=== PATIENT | female | born 1945 | race Two or more races ===

== ENCOUNTER 2016-08-27 14:35 | Inpatient (IN) | payer MEDICARE, OTHER ==
[~2016-08-27] VITALS: Ht 165.1 cm; Wt 79.5 kg
[~2016-08-27 14:35] MED LIST: ALL100T PO; CLON0.1D TD; DICY10CA12 PO; HYDR-2551 PO; LIS20T PO; NIFE60TA53 PO; SEVE800T8 PO; SIMV5TAB50 PO; TRAM50TA2 PO
[2016-08-27] MEDS ORDERED: LABETALOL HCL 5 MG/ML 4ML SYRINGE IV ONE (15:00)
[2016-08-27 15:42] LABS: Basophils # (auto) 0 uL; Basophils % (auto) 0.6 % (0.0-2.0); Eosinophils # (auto) 0 uL; Eosinophils % (auto) 0.9 % (0.0-7.0); Hematocrit 35.8 % (36.0-46.0); Hemoglobin 11.8 g/dL (12.2-16.2); Lymphocytes # (auto) 1.6 uL; Lymphocytes % (auto) 30.8 % (10.0-50.0); Mean Corpuscular Hgb Conc. 33.1 g/dL (32.0-36.0); Mean Corpuscular Volume 96.9 fL (80.0-100.0); Mean Platelet Volume 8.9 fL (7.4-10.4); Monocytes # (auto) 0.6 uL; Monocytes % (auto) 12.1 % (0.0-12.0); Neutrophils # (auto) 2.9 uL; Neutrophils % (auto) 55.6 % (37.0-80.0); Platelet Count (auto) 179 10^3/uL (140-450); Red Cell Distribution Width 17.7 % (11.6-16.0); White Blood Cell 5.3 10^3/uL (4.4-10.8)
[2016-08-27 15:54] LABS: INR 0.91 (0.9-1.15); Partial Thromboplastin Time 24.8 sec (22.64-33.71); Prothrombin Time 9.9 sec (9.37-12.3)
[2016-08-27 16:00] LABS: Albumin 3.4 g/dL (3.4-5.0); Alkaline Phosphatase 170 U/L (45-117); Anion Gap 12 (5-15); Aspartate Aminotransferase 12 U/L (15-37); BUN/Creatinine Ratio 8.7; Bilirubin, Total 0.3 mg/dL (0.2-1.0); Blood Urea Nitrogen 55 mg/dL (7-18); Calcium 8.8 mg/dL (8.5-10.1); Carbon Dioxide 29 mmol/L (21-32); Chloride 97 mmol/L (98-107); GFR African American 8 mL/min; GFR Non-African American 7 mL/min; Glucose 102 mg/dL (74-106); Potassium 4.5 mmol/L (3.5-5.1); Sodium 138 mmol/L (136-145)
[2016-08-27 16:11] LABS: B-Type Natriuretic Peptide 232.63 pg/mL (0-100); Temperature: 23.8 C (20.0-25.0)
[2016-08-27] MEDS ORDERED: LACTULOSE 20Gm/30ML SOLN PO PRN (18:00)
[2016-08-27] MEDS ORDERED: HYDROcodone-ACET 5/325MG TAB PO PRN (18:00)
[2016-08-27] MEDS ORDERED: LORazepam 0.5 MG TAB PO PRN (18:00)
[2016-08-27] MEDS ORDERED: ACETAMINOPHEN 500 MG TAB PO PRN (18:00)
[2016-08-27] MEDS ORDERED: PROMETHAZINE HCL 25 MG/ML 1ML IV PRN (18:00)
[2016-08-27] MEDS ORDERED: NITROGLYCERIN 0.4 MG SL TAB SL PRN (18:00)
[2016-08-27] MEDS ORDERED: cloNIDine 0.1 mg/24hr 7 DAY PATCH TD SCH (18:00)
[2016-08-27] MEDS ORDERED: TEMAZEPAM 15 MG CAP PO PRN (18:00)
[2016-08-27] MEDS ORDERED: MORPHINE SULF INJ 2 MG/ML SYRINGE 1ML IV PRN ×2 (18:00)
[2016-08-27] MEDS ORDERED: DEXTROSE (50%) 50ML SYRG IV PRN (18:00)
[2016-08-27] MEDS ORDERED: NIFEdipine ER 30 MG TAB PO ONE (18:30)
[2016-08-27] MEDS ORDERED: LISINOPRIL 20 MG TAB PO ONE (18:30)
[2016-08-27] MEDS ORDERED: ASPirin 81 mg TAB PO ONE (18:30)
[2016-08-27] MEDS: FAMOTIDINE (10MG/ML) 2ML VL IV SCH (18:37)
[2016-08-27 18:51] LABS: Temperature: 23.8 C (20.0-25.0)
[2016-08-27 22:00] VITALS: BP 134/47
[2016-08-27] MEDS: InsuLIN REG 1unit/0.01ml Soln (100units/ml) SC SCH (22:00)
[2016-08-27] MEDS ORDERED: ATORVASTATIN 20 MG TAB PO SCH (22:00)
[2016-08-27] MEDS: METOPROLOL TARTRATE 25 MG TAB PO SCH (22:24)
[2016-08-27] MEDS: SODIUM CHLOR 0.9% PF (SALINE LOCK) 10ML VIAL IV SCH (22:24)
[2016-08-27] MEDS: ALLOPURINOL 100 MG TAB PO SCH (22:25)
[2016-08-27] MEDS: ACCU-CHEK COMFORT CURVE STRIP VI SCH (22:25)
[2016-08-27 22:55] VITALS: BP 196/75
[2016-08-28 04:58] VITALS: BP 154/56
[2016-08-28 06:23] LABS: Basophils # (auto) 0 uL; Basophils % (auto) 0.5 % (0.0-2.0); Eosinophils # (auto) 0.1 uL; Eosinophils % (auto) 0.9 % (0.0-7.0); Hematocrit 36.7 % (36.0-46.0); Hemoglobin 12.1 g/dL (12.2-16.2); Lymphocytes # (auto) 1.4 uL; Mean Corpuscular Hemoglobin 31.7 pg (28.0-32.0); Mean Corpuscular Hgb Conc. 32.8 g/dL (32.0-36.0); Mean Corpuscular Volume 96.5 fL (80.0-100.0); Mean Platelet Volume 8.9 fL (7.4-10.4); Monocytes # (auto) 0.6 uL; Monocytes % (auto) 9.5 % (0.0-12.0); Neutrophils # (auto) 4.1 uL; Neutrophils % (auto) 67.1 % (37.0-80.0); Platelet Count (auto) 179 10^3/uL (140-450); Red Cell Distribution Width 17.6 % (11.6-16.0); White Blood Cell 6.2 10^3/uL (4.4-10.8)
[2016-08-28] MEDS ORDERED: PNEUMOCOCCAL VACC POLYS 25 MCG/0.5 ML VIAL IM ONE (06:45)
[2016-08-28] MEDS: InsuLIN REG 1unit/0.01ml Soln (100units/ml) SC SCH ×2 (06:47→11:30)
[2016-08-28] MEDS: ACCU-CHEK COMFORT CURVE STRIP VI SCH ×2 (06:47→11:35)
[2016-08-28 06:58] LABS: Albumin 3.5 g/dL (3.4-5.0); BUN/Creatinine Ratio 9.3; Bilirubin, Total 0.4 mg/dL (0.2-1.0); Calcium 8.9 mg/dL (8.5-10.1); Potassium 4.7 mmol/L (3.5-5.1); Total Protein 7.2 g/dL (6.4-8.2)
[2016-08-28] MEDS: SODIUM CHLOR 0.9% PF (SALINE LOCK) 10ML VIAL IV SCH ×2 (07:20→13:26)
[2016-08-28] MEDS: SEVELAMER 800 MG TAB PO SCH ×2 (08:12→11:39)
[2016-08-28] MEDS: ALLOPURINOL 100 MG TAB PO SCH (08:13)
[2016-08-28] MEDS: FAMOTIDINE (10MG/ML) 2ML VL IV SCH (08:14)
[2016-08-28] MEDS: METOPROLOL TARTRATE 25 MG TAB PO SCH (08:14)
[2016-08-28 08:59] VITALS: BP 146/88
[2016-08-28] MEDS ORDERED: ASPirin 81 mg TAB PO SCH (10:00)
[2016-08-28] MEDS ORDERED: LISINOPRIL 20 MG TAB PO SCH (10:00)
[2016-08-28] MEDS ORDERED: NITROGLYCERIN 0.2MG/HR TOPICAL PATCH TD SCH (10:00)
[2016-08-28] MEDS ORDERED: NIFEdipine ER 30 MG TAB PO SCH (10:00)
[2016-08-28 13:00] VITALS: BP 149/68
[2016-08-28 13:11] LABS: Urine Bilirubin Negative (Negative); Urine Blood Negative /uL (Negative); Urine Color Yellow (Yellow); Urine Ketone Negative (Negative); Urine Nitrite Negative (Negative); Urine RBC <1 /hpf (0 - 4); Urine Squamous Epithelial Cell FEW /hpf (<5); Urine Urobilinogen Normal (Negative)
[2016-08-28 13:17] VITALS: BP 146/88
[2016-08-28 13:22] LABS: Urine Glucose 1+ mg/dL (Normal)
[2016-08-29] MEDS ORDERED: ALLOPURINOL 100 MG TAB PO SCH (10:00)
== END 2016-08-28 15:00 | disposition home or self-care (01) | DRG 304 ==
LOC: EDBD 14:35 → ER 14:41 → TELE-CENTR 14:42 → TELE 20:29 → TELE-WESTW 22:55
PROVIDERS: ADMIT Internal Medicine; ATTEND Internal Medicine Geriatric Medicine
DX: I16.0 Hypertensive urgency (principal); N18.6 End stage renal disease; I13.2 Hypertensive heart and chronic kidney disease with heart failure and with stage 5 chronic kidney disease, or end stage renal disease; R07.89 Other chest pain; D63.8 Anemia in other chronic diseases classified elsewhere; M10.9 Gout, unspecified; E78.5 Hyperlipidemia, unspecified; E11.22 Type 2 diabetes mellitus with diabetic chronic kidney disease; D63.1 Anemia in chronic kidney disease; I50.9 Heart failure, unspecified; K57.90 Diverticulosis of intestine, part unspecified, without perforation or abscess without bleeding; Z80.0 Family history of malignant neoplasm of digestive organs; Z99.2 Dependence on renal dialysis; Z82.49 Family history of ischemic heart disease and other diseases of the circulatory system; Z85.038 Personal history of other malignant neoplasm of large intestine; Z91.14 Patient's other noncompliance with medication regimen; Z88.0 Allergy status to penicillin
CPT/HCPCS: 36415; 70450; 71010; 74176; 80053; 80061; 80307; 81001; 82550; 82607; 82746; 82962; 83036; 83880; 84443; 84484; 85025; 85379; 85610; 85652; 85730; 86141; 87081; 93005; 93306; 96374; J3490

== ENCOUNTER 2016-11-18 22:01 | Emergency (ER) | payer MEDICARE, OTHER ==
[~2016-11-18] VITALS: Ht 167.6 cm; Wt 72.6 kg
[2016-11-18 22:41] LABS: Basophils # (auto) 0 uL; Basophils % (auto) 0.2 % (0.0-2.0); CONDITION Y; Eosinophils # (auto) 0.1 uL; Hematocrit 27.9 % (36.0-46.0); Hemoglobin 9.2 g/dL (12.2-16.2); Lymphocytes # (auto) 1.4 uL; Lymphocytes % (auto) 21.5 % (10.0-50.0); Mean Corpuscular Hemoglobin 33.3 pg (28.0-32.0); Mean Corpuscular Volume 100.7 fL (80.0-100.0); Mean Platelet Volume 7.6 fL (7.4-10.4); Monocytes # (auto) 0.7 uL; Monocytes % (auto) 10.7 % (0.0-12.0); Neutrophils # (auto) 4.2 uL; Neutrophils % (auto) 66.6 % (37.0-80.0); Platelet Count (auto) 282 10^3/uL (140-450); White Blood Cell 6.3 10^3/uL (4.4-10.8)
[2016-11-18 22:52] LABS: Albumin 3.5 g/dL (3.4-5.0); BUN/Creatinine Ratio 6.7; Calcium 8.6 mg/dL (8.5-10.1); Potassium 4.3 mmol/L (3.5-5.1)
[2016-11-18 22:55] LABS: Bilirubin, Total 0.4 mg/dL (0.2-1.0); Total Protein 7.1 g/dL (6.4-8.2)
[2016-11-19] MEDS ORDERED: cloNIDine HCL 0.1 MG TAB PO ONE (08:30)
[2016-11-19 09:05] VITALS: BP 176/96
[2016-11-27] MEDS ORDERED: LOSA100T27 PO (15:14)
[2016-11-27] MEDS ORDERED: CLOP75TA41 PO (15:14)
[2016-11-27] MEDS ORDERED: CARI-316 PO (15:14)
[2016-11-27] MEDS ORDERED: PANT40T PO (15:14)
[2016-11-27] MEDS ORDERED: NIFE90TA30 PO (15:14)
[2016-11-27] MEDS ORDERED: AMIO200T33 PO (15:14)
[2016-11-27] MEDS ORDERED: METO-158 PO (15:14)
[2016-11-27] MEDS ORDERED: FURO40TA4 PO (15:14)
== END 2016-11-19 11:14 | disposition home or self-care (01) ==
LOC: EDBD 22:01 → ER 22:06
DX: I12.0 Hypertensive chronic kidney disease with stage 5 chronic kidney disease or end stage renal disease (principal); E11.22 Type 2 diabetes mellitus with diabetic chronic kidney disease; N18.6 End stage renal disease; E78.5 Hyperlipidemia, unspecified; Z90.710 Acquired absence of both cervix and uterus; Z88.0 Allergy status to penicillin; Z79.899 Other long term (current) drug therapy
CPT/HCPCS: 36415; 73060; 80053; 85025; 93005

== ENCOUNTER 2017-01-08 17:42 | Observation (INO) | payer OTHER ==
[~2017-01-08] VITALS: Ht 152.4 cm; Wt 63.5 kg
[~2017-01-08 17:42] MED LIST changes: +AMIO200T33 PO; +CARI-316 PO; +CLOP75TA41 PO; -DICY10CA12 PO; +FURO40TA4 PO; -HYDR-2551 PO; -LIS20T PO; +LOSA100T27 PO; +METO-158 PO; +NIFE90TA30 PO; +PANT40T PO; -SIMV5TAB50 PO; -TRAM50TA2 PO
[2017-01-08 19:37] LABS: Basophils # (auto) 0 uL; Basophils % (auto) 0.1 % (0.0-2.0); Eosinophils # (auto) 0 uL; Eosinophils % (auto) 0.4 % (0.0-7.0); Hematocrit 37.1 % (36.0-46.0); Hemoglobin 12.3 g/dL (12.2-16.2); Lymphocytes # (auto) 0.9 uL; Lymphocytes % (auto) 9.8 % (10.0-50.0); Mean Corpuscular Hemoglobin 32.3 pg (28.0-32.0); Mean Corpuscular Hgb Conc. 33.2 g/dL (32.0-36.0); Mean Corpuscular Volume 97.4 fL (80.0-100.0); Mean Platelet Volume 7.4 fL (6.9-10.8); Monocytes # (auto) 0.7 uL; Monocytes % (auto) 7.1 % (0.0-12.0); Neutrophils # (auto) 7.8 uL; Neutrophils % (auto) 82.6 % (37.0-80.0); Nucleated Red Blood Cells % 0.2 %; Platelet Count (auto) 204 10^3/uL (140-450); Red Cell Distribution Width 15.8 % (11.8-14.3); White Blood Cell 9.5 10^3/uL (4.4-10.8)
[2017-01-08 19:55] LABS: Albumin 3.6 g/dL (3.4-5.0); Anion Gap 12 (5-15); Aspartate Aminotransferase 15 U/L (15-37); BUN/Creatinine Ratio 4.4; Blood Urea Nitrogen 22 mg/dL (7-18); Calcium 8.4 mg/dL (8.5-10.1); Carbon Dioxide 35 mmol/L (21-32); Chloride 99 mmol/L (98-107); GFR African American 11 mL/min; GFR Non-African American 9 mL/min; Glucose 88 mg/dL (74-106); Potassium 4.1 mmol/L (3.5-5.1); Sodium 146 mmol/L (136-145)
[2017-01-08 19:59] LABS: Alkaline Phosphatase 242 U/L (45-117); Bilirubin, Total 0.4 mg/dL (0.2-1.0); Total Protein 7.6 g/dL (6.4-8.2)
[2017-01-08] MEDS ORDERED: HYDROmorphone HCL 2 MG/ML VL IV ONE (23:00)
[2017-01-08] MEDS ORDERED: ONDANSETRON HCL 4 MG/2 ML VIAL IV ONE (23:00)
[2017-01-08 23:39] LABS: INR 0.95 (0.9-1.15); Prothrombin Time 10.4 sec (9.37-12.3)
[2017-01-09 02:33] VITALS: BP 154/86
== END 2017-01-09 02:38 | disposition home or self-care (01) | DRG 312 ==
LOC: EDBD 17:42 → EDUNIT# 17:42 → ER 17:42 → OVERFLOW 22:45 → ER 01-09 02:38
PROVIDERS: ADMIT Emergency Medicine; ATTEND Emergency Medicine
DX: R55 Syncope and collapse (principal); E11.22 Type 2 diabetes mellitus with diabetic chronic kidney disease; I12.0 Hypertensive chronic kidney disease with stage 5 chronic kidney disease or end stage renal disease; N18.6 End stage renal disease; J45.909 Unspecified asthma, uncomplicated; Z86.73 Personal history of transient ischemic attack (TIA), and cerebral infarction without residual deficits; D64.9 Anemia, unspecified; Z82.49 Family history of ischemic heart disease and other diseases of the circulatory system; Z99.2 Dependence on renal dialysis
CPT/HCPCS: 36415; 70450; 71010; 80053; 82962; 83735; 83880; 84443; 84484; 85025; 85379; 85610; 85730; 93005; 96374; 96375; 99285; G0378; J1170; J2405

== ENCOUNTER 2017-03-12 17:21 | Emergency (ER) | payer OTHER ==
[~2017-03-12] VITALS: Ht 165.1 cm; Wt 63.5 kg
[2017-03-12 20:04] LABS: Albumin 4.1 g/dL (3.4-5.0); BUN/Creatinine Ratio 6.5; Bilirubin, Total 0.3 mg/dL (0.2-1.0); Calcium 8.7 mg/dL (8.5-10.1); Potassium 3.9 mmol/L (3.5-5.1); Total Protein 7.7 g/dL (6.4-8.2)
[2017-03-12 23:52] LABS: Basophils # (auto) 0 uL; Basophils % (auto) 0.5 % (0.0-2.0); Eosinophils # (auto) 0 uL; Eosinophils % (auto) 0.7 % (0.0-7.0); Hematocrit 34.7 % (36.0-46.0); Hemoglobin 11.5 g/dL (12.2-16.2); Lymphocytes # (auto) 0.8 uL; Lymphocytes % (auto) 14.3 % (10.0-50.0); Mean Corpuscular Hemoglobin 31.5 pg (28.0-32.0); Mean Corpuscular Hgb Conc. 33.1 g/dL (32.0-36.0); Mean Corpuscular Volume 95.1 fL (80.0-100.0); Mean Platelet Volume 8.1 fL (6.9-10.8); Monocytes # (auto) 0.7 uL; Monocytes % (auto) 13.3 % (0.0-12.0); Neutrophils # (auto) 3.8 uL; Neutrophils % (auto) 71.2 % (37.0-80.0); Nucleated Red Blood Cells % 0.1 %; Platelet Count (auto) 197 10^3/uL (140-450); Red Cell Distribution Width 16.4 % (11.8-14.3); White Blood Cell 5.3 10^3/uL (4.4-10.8)
[2017-03-13 00:05] LABS: INR 0.96 (0.9-1.15); Partial Thromboplastin Time 23.3 sec (22.64-33.71); Prothrombin Time 10.5 sec (9.37-12.3)
[2017-03-13] MEDS ORDERED: cloNIDine HCL 0.1 MG TAB PO ONE (00:15)
[2017-03-13 00:45] LABS: B-Type Natriuretic Peptide 128.44 pg/mL (0-100)
[2017-03-13 00:48] LABS: Temperature: 22.8 C (20.0-25.0)
[2017-03-13 04:03] VITALS: BP 146/64
== END 2017-03-13 04:07 | disposition home or self-care (01) ==
LOC: EDBD 17:21 → ER 17:27
DX: R55 Syncope and collapse (principal); R51 Headache; E11.22 Type 2 diabetes mellitus with diabetic chronic kidney disease; I12.0 Hypertensive chronic kidney disease with stage 5 chronic kidney disease or end stage renal disease; N18.6 End stage renal disease; M10.9 Gout, unspecified; J45.909 Unspecified asthma, uncomplicated; I25.2 Old myocardial infarction; E78.5 Hyperlipidemia, unspecified; Z90.710 Acquired absence of both cervix and uterus; Z99.2 Dependence on renal dialysis; Z79.4 Long term (current) use of insulin; Z86.73 Personal history of transient ischemic attack (TIA), and cerebral infarction without residual deficits
CPT/HCPCS: 36415; 70450; 71010; 80053; 82962; 83735; 83880; 84484; 85025; 85379; 85610; 85730; 93005

== ENCOUNTER 2017-04-14 17:51 | Emergency (ER) | payer OTHER ==
[~2017-04-14] VITALS: Ht 152.4 cm; Wt 65.8 kg
[2017-04-15 06:28] VITALS: BP 176/54
[2017-04-15] MEDS ORDERED: LOSARTAN POTASSIUM 50 MG TAB PO ONE ×2 (06:45)
[2017-04-15] MEDS ORDERED: ACETAMINOPHEN 325 MG TAB PO ONE (07:00)
== END 2017-04-15 07:06 | disposition home or self-care (01) ==
LOC: EDBD 17:51 → ER 17:51
DX: I12.0 Hypertensive chronic kidney disease with stage 5 chronic kidney disease or end stage renal disease (principal); E11.22 Type 2 diabetes mellitus with diabetic chronic kidney disease; N18.6 End stage renal disease; Z99.2 Dependence on renal dialysis; J45.909 Unspecified asthma, uncomplicated; E78.5 Hyperlipidemia, unspecified; I25.2 Old myocardial infarction; Z86.73 Personal history of transient ischemic attack (TIA), and cerebral infarction without residual deficits; Z88.0 Allergy status to penicillin
CPT/HCPCS: 70450; 93005

== ENCOUNTER 2017-05-05 23:22 | Emergency (ER) | payer OTHER ==
[~2017-05-05] VITALS: Ht 152.4 cm; Wt 65.8 kg
[2017-05-05 23:58] LABS: Basophils # (auto) 0 uL; Basophils % (auto) 0.2 % (0.0-2.0); Eosinophils # (auto) 0 uL; Eosinophils % (auto) 0.4 % (0.0-7.0); Hematocrit 37.7 % (36.0-46.0); Hemoglobin 12.4 g/dL (12.2-16.2); Lymphocytes # (auto) 0.5 uL; Lymphocytes % (auto) 5.5 % (10.0-50.0); Mean Corpuscular Hemoglobin 31.8 pg (28.0-32.0); Mean Corpuscular Hgb Conc. 32.9 g/dL (32.0-36.0); Mean Corpuscular Volume 96.6 fL (80.0-100.0); Monocytes # (auto) 0.7 uL; Monocytes % (auto) 6.9 % (0.0-12.0); Neutrophils # (auto) 8.4 uL; Nucleated Red Blood Cells % 0.1 %; Platelet Count (auto) 205 10^3/uL (140-450); Red Cell Distribution Width 14.7 % (11.8-14.3); White Blood Cell 9.6 10^3/uL (4.4-10.8)
[2017-05-06 00:15] LABS: Alanine Aminotransferase 22 U/L (13-56); Albumin 3.9 g/dL (3.4-5.0); Anion Gap 8 (5-15); Aspartate Aminotransferase 14 U/L (15-37); Blood Urea Nitrogen 26 mg/dL (7-18); Calcium 9.1 mg/dL (8.5-10.1); Carbon Dioxide 31 mmol/L (21-32); Chloride 98 mmol/L (98-107); GFR African American 10 mL/min; GFR Non-African American 9 mL/min; Glucose 97 mg/dL (74-106); Magnesium 2.2 mg/dL (1.6-2.6); Potassium 4.7 mmol/L (3.5-5.1); Sodium 137 mmol/L (136-145)
[2017-05-06 00:20] LABS: Alkaline Phosphatase 309 U/L (45-117); Bilirubin, Total 0.4 mg/dL (0.2-1.0); Total Protein 7.9 g/dL (6.4-8.2)
[2017-05-06] MEDS ORDERED: FAMOTIDINE (10MG/ML) 2ML VL IV ONE (03:15)
[2017-05-06] MEDS ORDERED: ONDANSETRON HCL 4 MG/2 ML VIAL IV ONE (03:15)
[2017-05-06 04:27] VITALS: BP 156/75
== END 2017-05-06 05:37 | disposition home or self-care (01) ==
LOC: ER 23:30
DX: R06.02 Shortness of breath (principal); J44.1 Chronic obstructive pulmonary disease with (acute) exacerbation; N18.6 End stage renal disease; I25.2 Old myocardial infarction; J45.909 Unspecified asthma, uncomplicated; E78.00 Pure hypercholesterolemia, unspecified; I12.0 Hypertensive chronic kidney disease with stage 5 chronic kidney disease or end stage renal disease; E11.22 Type 2 diabetes mellitus with diabetic chronic kidney disease; Z99.2 Dependence on renal dialysis; Z90.710 Acquired absence of both cervix and uterus; Z88.0 Allergy status to penicillin; Z88.8 Allergy status to other drugs, medicaments and biological substances; Z79.01 Long term (current) use of anticoagulants; Z79.899 Other long term (current) drug therapy
CPT/HCPCS: 36415; 71045; 80053; 83735; 83880; 84484; 85025; 93005; 96374; 96375; 99285; J2405; J3490

== ENCOUNTER 2017-05-28 18:24 | Emergency (ER) | payer OTHER ==
[~2017-05-28] VITALS: Ht 152.4 cm; Wt 65.8 kg
[2017-05-28 20:07] LABS: Basophils # (auto) 0 uL; Basophils % (auto) 0.3 % (0.0-2.0); Eosinophils # (auto) 0.1 uL; Eosinophils % (auto) 1.2 % (0.0-7.0); Hematocrit 35.9 % (36.0-46.0); Lymphocytes # (auto) 1.4 uL; Lymphocytes % (auto) 25.7 % (10.0-50.0); Mean Corpuscular Hemoglobin 31.9 pg (28.0-32.0); Mean Corpuscular Hgb Conc. 33.5 g/dL (32.0-36.0); Mean Corpuscular Volume 95.1 fL (80.0-100.0); Monocytes # (auto) 0.6 uL; Monocytes % (auto) 11.3 % (0.0-12.0); Neutrophils # (auto) 3.3 uL; Neutrophils % (auto) 61.5 % (37.0-80.0); Nucleated Red Blood Cells % 0.1 %; Platelet Count (auto) 216 10^3/uL (140-450); Red Blood Cells 3.78 10^6/uL (4.0-5.20); White Blood Cell 5.4 10^3/uL (4.4-10.8)
[2017-05-28 20:33] LABS: Albumin 3.8 g/dL (3.4-5.0); BUN/Creatinine Ratio 5.1; Bilirubin, Total 0.3 mg/dL (0.2-1.0); Calcium 9.1 mg/dL (8.5-10.1); Magnesium 2.6 mg/dL (1.6-2.6); Potassium 4.6 mmol/L (3.5-5.1); Total Protein 8.3 g/dL (6.4-8.2)
[2017-05-28 21:39] VITALS: BP 122/72
[2017-05-28] MEDS ORDERED: ACETAMINOPHEN/CODEINE#3 (300/30mg) TAB PO ONE ×2 (22:00→22:15)
[2017-05-28] MEDS ORDERED: FUROSEMIDE 20 MG TAB PO ONE ×2 (22:45→23:00)
== END 2017-05-28 23:41 | disposition home or self-care (01) ==
LOC: ER 18:24
DX: I12.0 Hypertensive chronic kidney disease with stage 5 chronic kidney disease or end stage renal disease (principal); N18.6 End stage renal disease; M10.9 Gout, unspecified; J45.909 Unspecified asthma, uncomplicated; E78.5 Hyperlipidemia, unspecified; I25.2 Old myocardial infarction; Z86.73 Personal history of transient ischemic attack (TIA), and cerebral infarction without residual deficits; Z90.710 Acquired absence of both cervix and uterus; Z99.2 Dependence on renal dialysis
CPT/HCPCS: 36415; 71045; 80053; 83735; 83880; 85025; 93005

== ENCOUNTER 2017-06-02 09:13 | Emergency (ER) | payer OTHER ==
[~2017-06-02] VITALS: Ht 152.4 cm; Wt 65.8 kg
[2017-06-02 12:21] LABS: Basophils # (auto) 0 uL; Basophils % (auto) 0.4 % (0.0-2.0); Eosinophils # (auto) 0.1 uL; Eosinophils % (auto) 2.2 % (0.0-7.0); Hemoglobin 11.7 g/dL (12.2-16.2); Lymphocytes % (auto) 24.2 % (10.0-50.0); Mean Corpuscular Hemoglobin 32.5 pg (28.0-32.0); Mean Corpuscular Hgb Conc. 34.3 g/dL (32.0-36.0); Mean Corpuscular Volume 94.8 fL (80.0-100.0); Monocytes # (auto) 0.5 uL; Monocytes % (auto) 12.2 % (0.0-12.0); Neutrophils # (auto) 2.4 uL; Nucleated Red Blood Cells % 0.1 %; Platelet Count (auto) 202 10^3/uL (140-450); Red Blood Cells 3.59 10^6/uL (4.0-5.20); White Blood Cell 3.9 10^3/uL (4.4-10.8)
[2017-06-02 12:56] LABS: Albumin 3.6 g/dL (3.4-5.0); BUN/Creatinine Ratio 6.1; Bilirubin, Total 0.4 mg/dL (0.2-1.0); Calcium 8.9 mg/dL (8.5-10.1); Total Protein 7.9 g/dL (6.4-8.2)
[2017-06-02 13:12] LABS: Potassium 6.1 mmol/L (3.5-5.1)
[2017-06-02] MEDS ORDERED: DEXTROSE (50%) 50ML SYRG IV ONE ×2 (13:45→15:15)
[2017-06-02] MEDS ORDERED: InsuLIN REG 1unit/0.01ml Soln (100units/ml) IV ONE (13:45)
[2017-06-02 15:25] VITALS: BP 139/58
== END 2017-06-02 16:56 | disposition home or self-care (01) ==
LOC: ER 09:13
DX: E11.22 Type 2 diabetes mellitus with diabetic chronic kidney disease (principal); I12.0 Hypertensive chronic kidney disease with stage 5 chronic kidney disease or end stage renal disease; N18.6 End stage renal disease; E78.5 Hyperlipidemia, unspecified; E87.5 Hyperkalemia; M10.9 Gout, unspecified; J45.909 Unspecified asthma, uncomplicated; I25.2 Old myocardial infarction; Z86.73 Personal history of transient ischemic attack (TIA), and cerebral infarction without residual deficits; Z99.2 Dependence on renal dialysis; Z79.4 Long term (current) use of insulin; Z88.0 Allergy status to penicillin; Z90.710 Acquired absence of both cervix and uterus
CPT/HCPCS: 36415; 80053; 82962; 85025; 96374; 96375; 96376; 99284; J1815; J7042

== ENCOUNTER 2017-06-30 09:25 | Observation (INO) | payer OTHER ==
[~2017-06-30] VITALS: Ht 160 cm; Wt 63.5 kg
[2017-06-30 12:15] LABS: Basophils # (auto) 0 uL; Basophils % (auto) 0.5 % (0.0-2.0); Eosinophils # (auto) 0 uL; Eosinophils % (auto) 0.6 % (0.0-7.0); Hematocrit 28.8 % (36.0-46.0); Hemoglobin 9.8 g/dL (12.2-16.2); Lymphocytes % (auto) 22.6 % (10.0-50.0); Mean Corpuscular Hemoglobin 31.9 pg (28.0-32.0); Mean Corpuscular Volume 93.7 fL (80.0-100.0); Monocytes # (auto) 0.6 uL; Monocytes % (auto) 12.9 % (0.0-12.0); Neutrophils # (auto) 2.9 uL; Neutrophils % (auto) 63.4 % (37.0-80.0); Platelet Count (auto) 212 10^3/uL (140-450); Red Blood Cells 3.07 10^6/uL (4.0-5.20); White Blood Cell 4.5 10^3/uL (4.4-10.8)
[2017-06-30] MEDS ORDERED: ONDANSETRON HCL 4 MG/2 ML VIAL IV ONE (12:30)
[2017-06-30] MEDS ORDERED: SODIUM CHLORIDE 0.9% 250 ML IV ONE (12:30)
[2017-06-30 12:50] LABS: BUN/Creatinine Ratio 4.7; Bilirubin, Total 0.3 mg/dL (0.2-1.0); Calcium 8.1 mg/dL (8.5-10.1); Magnesium 2.5 mg/dL (1.6-2.6); Potassium 4.4 mmol/L (3.5-5.1); Total Protein 7.3 g/dL (6.4-8.2)
[2017-06-30 12:53] LABS: INR 1.01 (0.9-1.15); Partial Thromboplastin Time 30.3 sec (22.64-33.71)
[2017-06-30 13:33] LABS: Amylase 48 U/L (25-115); Lipase 102 U/L (73-393)
[2017-06-30 15:26] VITALS: BP 157/73
== END 2017-06-30 16:00 | disposition home or self-care (01) | DRG 391 ==
LOC: ER 09:25 → EDUNIT# 09:25 → OVERFLOW 11:20 → ER 16:00
PROVIDERS: ADMIT Family Medicine; ATTEND Family Medicine
DX: R10.9 Unspecified abdominal pain (principal); N18.6 End stage renal disease; E11.22 Type 2 diabetes mellitus with diabetic chronic kidney disease; I12.0 Hypertensive chronic kidney disease with stage 5 chronic kidney disease or end stage renal disease; D63.8 Anemia in other chronic diseases classified elsewhere; E78.5 Hyperlipidemia, unspecified; I25.2 Old myocardial infarction; Z82.49 Family history of ischemic heart disease and other diseases of the circulatory system; Z86.73 Personal history of transient ischemic attack (TIA), and cerebral infarction without residual deficits; Z99.2 Dependence on renal dialysis; Z90.710 Acquired absence of both cervix and uterus; Z88.0 Allergy status to penicillin
CPT/HCPCS: 36415; 71045; 74176; 80053; 82150; 83690; 83735; 85025; 85610; 85730; 93005; 96361; 96374; 99285; G0378; J2405; J7030

== ENCOUNTER 2017-07-12 10:48 | Inpatient (IN) | payer OTHER ==
[2017-07-12] VITALS (30 sets, daily range): BP systolic 54–141; BP diastolic 26–95
[~2017-07-12] VITALS: Ht 165.1 cm; Wt 69.0 kg
[2017-07-12 11:31] LABS: Basophils # (auto) 0 uL; Basophils % (auto) 0.3 % (0.0-2.0); Eosinophils # (auto) 0.1 uL; Eosinophils % (auto) 1.2 % (0.0-7.0); Hematocrit 29.6 % (36.0-46.0); Hemoglobin 9.6 g/dL (12.2-16.2); Lymphocytes # (auto) 0.9 uL; Lymphocytes % (auto) 12.1 % (10.0-50.0); Mean Corpuscular Hemoglobin 31.2 pg (28.0-32.0); Mean Corpuscular Hgb Conc. 32.6 g/dL (32.0-36.0); Mean Corpuscular Volume 95.8 fL (80.0-100.0); Monocytes # (auto) 0.6 uL; Monocytes % (auto) 8.1 % (0.0-12.0); Neutrophils # (auto) 5.6 uL; Neutrophils % (auto) 78.3 % (37.0-80.0); Platelet Count (auto) 130 10^3/uL (140-450); Red Blood Cells 3.08 10^6/uL (4.0-5.20); Red Cell Distribution Width 16.4 % (11.8-14.3); White Blood Cell 7.1 10^3/uL (4.4-10.8)
[2017-07-12 11:52] LABS: Alanine Aminotransferase 20 U/L (13-56); Alkaline Phosphatase 322 U/L (45-117); Anion Gap 11 (5-15); Aspartate Aminotransferase 18 U/L (15-37); BUN/Creatinine Ratio 7.1; Bilirubin, Total 0.4 mg/dL (0.2-1.0); Blood Urea Nitrogen 47 mg/dL (7-18); Calcium 7.9 mg/dL (8.5-10.1); Carbon Dioxide 28 mmol/L (21-32); Chloride 100 mmol/L (98-107); GFR African American 8 mL/min; GFR Non-African American 7 mL/min; Glucose 74 mg/dL (74-106); Magnesium 2.7 mg/dL (1.6-2.6); Potassium 4.9 mmol/L (3.5-5.1); Sodium 139 mmol/L (136-145); Total Protein 7.1 g/dL (6.4-8.2)
[2017-07-12] MEDS ORDERED: cefTRIAXone 1GM/10ml IVPUSH 10 ML IV ONE (14:30)
[2017-07-12] MEDS ORDERED: IPRATROPIUM BROM 0.5 MG/2.5ML INH SOL NEB ONE (14:30)
[2017-07-12] MEDS ORDERED: cloNIDine 0.2 mg/24hr 7DAY PATCH TD ONE ×2 (14:30→15:00)
[2017-07-12] MEDS ORDERED: ALBUTEROL SULF 2.5 MG/0.5ML(0.5%) NEB SOLN NEB ONE (14:30)
[2017-07-12] MEDS ORDERED: AZITHROMYCIN 500MG/ 250ML 250 ML IV ONE (14:30)
[2017-07-12] MEDS ORDERED: IPRATROPIUM BROM 0.5 MG/2.5ML INH SOL ONE (14:31)
[2017-07-12] MEDS ORDERED: ALBUTEROL SULF 2.5 MG/0.5ML(0.5%) NEB SOLN ONE (14:31)
[2017-07-12] MEDS ORDERED: MORPHINE SULFATE 8mg/ml INJ SDV IV PRN ×2 (14:45)
[2017-07-12] MEDS ORDERED: ACETAMINOPHEN 325 MG TAB PO PRN (14:45)
[2017-07-12] MEDS ORDERED: HYDROcodone-ACET 5/325MG TAB PO PRN (14:45)
[2017-07-12] MEDS ORDERED: ONDANSETRON HCL 4 MG/2 ML VIAL IV PRN (14:45)
[2017-07-12] MEDS ORDERED: TEMAZEPAM 15 MG CAP PO PRN (14:45)
[2017-07-12] MEDS ORDERED: NITROGLYCERIN 0.4 MG SL TAB SL PRN (14:45)
[2017-07-12] MEDS ORDERED: DOCUSATE SOD 100 MG CAP PO PRN (14:45)
[2017-07-12] MEDS ORDERED: ETOMIDATE (2MG/ML) 20ML VIAL IV ONE ×2 (14:48→14:58)
[2017-07-12] MEDS ORDERED: SUCCINYLCHOLINE CHLORIDE 20 MG/ML 10ML VIAL IV ONE ×2 (14:48→14:49)
[2017-07-12] MEDS ORDERED: DEXTROSE (50%) 50ML SYRG IV PRN (15:00)
[2017-07-12] MEDS ORDERED: MIDAZOLAM DRIP 50 mg/50mL 50 ML IV ONE (15:00)
[2017-07-12] MEDS ORDERED: CARISOPRODOL 350 MG TAB PO PRN (15:00)
[2017-07-12] MEDS ORDERED: hydrALAZINE HCL 10 MG TAB PO PRN (15:00)
[2017-07-12] MEDS: MIDAZOLAM DRIP 50 mg/50mL 50 ML IV SCH ×2 (15:30→17:10)
[2017-07-12] MEDS ORDERED: PROPOFOL 100 ML IV SCH (15:30)
[2017-07-12] MEDS ORDERED: PROPOFOL 100 ML IV ONE (15:32)
[2017-07-12 15:36] LABS: BUN/Creatinine Ratio 7.2; Calcium 7.7 mg/dL (8.5-10.1); Potassium 5.2 mmol/L (3.5-5.1)
[2017-07-12] MEDS ORDERED: AMIODARONE HCL 900 MG in DEXTROSE 500 ML IV SCH (15:41)
[2017-07-12] MEDS ORDERED: ENALAPRILAT 1.25 MG/ML-1ML VIAL IV PRN (15:45)
[2017-07-12] MEDS ORDERED: PANTOPRAZOLE 40 MG/10 ML VIAL IV ONE (15:45)
[2017-07-12] MEDS ORDERED: InsuLIN REG 1unit/0.01ml Soln (100units/ml) SC SCH (17:00)
[2017-07-12] MEDS ORDERED: ACCU-CHEK COMFORT CURVE STRIP VI SCH (17:00)
[2017-07-12] MEDS: NOREPINEPHRINE 16 MG/500ML KIT 500 ML IV SCH ×2 (17:20→18:00)
[2017-07-12] MEDS ORDERED: ATROPINE SULFATE 0.4 MG/1 ML VIAL ONE (17:33)
[2017-07-12] MEDS ORDERED: NOREPINEPHRINE 16 MG/500ML KIT 500 ML IV ONE (17:38)
[2017-07-12] MEDS: DOPamine 1600MCG/ML D5W 250 ML IV SCH ×2 (17:51→18:54)
[2017-07-12] MEDS ORDERED: SODIUM CHLORIDE 0.9% 1,000 ML IV ONE (18:00)
[2017-07-12] MEDS: IPRATROPIUM BROM 0.5 MG/2.5ML INH SOL NEB SCH (18:00)
[2017-07-12] MEDS ORDERED: FUROSEMIDE 40 MG TAB PO SCH (18:00)
[2017-07-12] MEDS ORDERED: DOPamine 1600MCG/ML D5W 250 ML IV SCH (18:00)
[2017-07-12] MEDS: ALBUTEROL SULF 2.5 MG/0.5ML(0.5%) NEB SOLN NEB SCH (18:00)
[2017-07-12] MEDS ORDERED: ALLOPURINOL 100 MG TAB PO SCH (18:00)
[2017-07-12] MEDS ORDERED: SEVELAMER 800 MG TAB PO SCH (18:00)
[2017-07-12] MEDS ORDERED: PHENYLEPHRINE IV 250 ML IV ONE (18:33)
[2017-07-12] MEDS ORDERED: PHENYLEPHRINE INJ 20 MG in SODIUM CHL 0.9% 250 ML IV SCH ×2 (18:54→19:45)
[2017-07-12] MEDS ORDERED: VASOPRESSIN 50 UNITS in D5W 5% 247.5 ML IV SCH (19:00)
[2017-07-12 19:26] LABS: Albumin 2.1 g/dL (3.4-5.0); BUN/Creatinine Ratio 7.1; Bilirubin, Total 0.9 mg/dL (0.2-1.0); Calcium 8.9 mg/dL (8.5-10.1); Magnesium 3.4 mg/dL (1.6-2.6); Total Protein 5.2 g/dL (6.4-8.2)
[2017-07-12] MEDS ORDERED: EPINEPHrine HCL 250 ML IV ONE ×2 (19:26→19:27)
[2017-07-12] MEDS: ACCU-CHEK COMFORT CURVE STRIP VI SCH (19:26)
[2017-07-12] MEDS: InsuLIN REG 1unit/0.01ml Soln (100units/ml) SC SCH (19:27)
[2017-07-12] MEDS ORDERED: EPINEPHrine HCL 250 ML IV SCH (19:35)
[2017-07-12 19:42] LABS: Lactic Acid w/Reflex 7.7 mmol/L (0.4-2.0)
[2017-07-12] MEDS ORDERED: EPINEPHrine HCL 1 MG/10 ML SYRG IV ONE (19:44)
[2017-07-12] MEDS ORDERED: CALCIUM CHLOR(10%) 100MG/ML 10ML SYRINGE IV ONE (19:44)
[2017-07-12] MEDS ORDERED: SODIUM BICARBONATE 8.4% INJ 50ML SYRINGE IV ONE (19:44)
[2017-07-12] MEDS ORDERED: ATROPINE SULF 0.5 MG/5ML SYR IV ONE (19:44)
[2017-07-12] MEDS ORDERED: NOREPINEPHRINE BITARTRATE 32 MG in D5W 5% 218 ML IV SCH (20:00)
[2017-07-12] MEDS ORDERED: EPINEPHrine HCL INJECTION 8 MG in D5W 5% 250 ML IV SCH (20:00)
[2017-07-12 20:01] LABS: Potassium 6.6 mmol/L (3.5-5.1)
[2017-07-12] MEDS ORDERED: SODIUM BICARBONATE 8.4 % INJ 50ML VIAL IV ONE ×3 (20:17→22:15)
[2017-07-12] MEDS ORDERED: ALBUMIN 25% 50 ML IV ONE (20:29)
[2017-07-12] MEDS ORDERED: ALBUMIN 5% 50 ML IV ONE (20:30)
[2017-07-12] MEDS ORDERED: SODIUM CHLORIDE 0.9% 500 ML IV ONE (20:30)
[2017-07-12] MEDS: PHENYLEPHRINE INJ 80 MG in SODIUM CHL 0.9% 250 ML IV SCH (20:39)
[2017-07-12] MEDS ORDERED: SODIUM BICARBONATE 50ML VIAL 50 ML in SOD CHL 0.45% 1,000 ML IV SCH (21:30)
[2017-07-12 21:47] LABS: INR 1.26 (0.9-1.15); Partial Thromboplastin Time 31.5 sec (22.64-33.71); Prothrombin Time 13.8 sec (9.37-12.3)
[2017-07-12 21:49] LABS: BUN/Creatinine Ratio 7.4
[2017-07-12 21:57] LABS: Bilirubin, Total 1.8 mg/dL (0.2-1.0); Total Protein 5.3 g/dL (6.4-8.2)
[2017-07-12] MEDS ORDERED: METOPROLOL TARTRATE 50 MG TAB PO SCH (22:00)
[2017-07-12] MEDS ORDERED: AMIODARONE HCL 200 MG TAB PO SCH (22:00)
[2017-07-12] MEDS: SODIUM CHLOR 0.9% PF (SALINE LOCK) 10ML VIAL/SYR IV SCH (22:00)
[2017-07-12] MEDS ORDERED: LOSARTAN POTASSIUM 50 MG TAB PO SCH (22:00)
[2017-07-12] MEDS ORDERED: FAMOTIDINE 20 MG TAB PO SCH (22:00)
[2017-07-12 22:04] LABS: Hematocrit 29.1 % (36.0-46.0); Hemoglobin 9.6 g/dL (12.2-16.2); Mean Corpuscular Hemoglobin 31.8 pg (28.0-32.0); Mean Corpuscular Hgb Conc. 32.9 g/dL (32.0-36.0); Mean Corpuscular Volume 96.9 fL (80.0-100.0); Platelet Count (auto) 33 10^3/uL (140-450); Potassium 6.9 mmol/L (3.5-5.1); Red Blood Cells 3.01 10^6/uL (4.0-5.20); Red Cell Distribution Width 16.2 % (11.8-14.3)
[2017-07-12] MEDS ORDERED: CALCIUM GLUC 4.65 MEQ/10ML 10 ML IV ONE (22:08)
[2017-07-12] MEDS ORDERED: SODIUM POLYSTYRENE SULF 15GM/60ML SUSP ONE (22:09)
[2017-07-12] MEDS ORDERED: InsuLIN REG 1unit/0.01ml Soln (100units/ml) ONE (22:09)
[2017-07-12] MEDS ORDERED: InsuLIN REG 1unit/0.01ml Soln (100units/ml) IV ONE (22:15)
[2017-07-12] MEDS ORDERED: DEXTROSE (50%) 50ML SYRG IV ONE (22:15)
[2017-07-12] MEDS ORDERED: CALCIUM GLUC 4.65meq/50ml D5AE 50 ML IV ONE (22:15)
[2017-07-12] MEDS ORDERED: SODIUM POLYSTYRENE SULF 15GM/60ML SUSP PR ONE (22:15)
[2017-07-12 22:21] LABS: White Blood Cell 1.5 10^3/uL (4.4-10.8)
[2017-07-12 22:22] LABS: Band Neutrophils % (manual) 0; Basophils % (manual) 0 (0.0-2.0); Blast Cells 0; Metamyelocytes % 0; Promyelocytes % 0; Reactive Lymphocytes 0
[2017-07-12 22:24] LABS: Eosinophils % (manual) 3 (0-7); Lymphocytes % (manual) 52 (10.0-50.0); Monocytes % (manual) 5 (0-12); Myelocytes % 2
[2017-07-12] MEDS ORDERED: FILGRASTIM 300 MCG INJ VIAL SC ONE (22:45)
[2017-07-12] MEDS ORDERED: FILGRASTIM 300 MCG INJ VIAL ONE (23:13)
[2017-07-12] MEDS: DEXTROSE (50%) 50ML SYRG IV PRN (23:53)
[2017-07-13] VITALS (56 sets, daily range): BP systolic 72–124; BP diastolic 37–79
[2017-07-13] MEDS: DOPamine 3200MCG/ML 250 ML IV SCH ×2 (00:15→10:47)
[2017-07-13] MEDS: ALBUTEROL SULF 2.5 MG/0.5ML(0.5%) NEB SOLN NEB SCH ×3 (00:22→11:55)
[2017-07-13] MEDS: IPRATROPIUM BROM 0.5 MG/2.5ML INH SOL NEB SCH ×3 (00:23→11:55)
[2017-07-13] MEDS ORDERED: DEXTROSE 10% 1,000 ML IV ONE ×2 (01:05→01:45)
[2017-07-13] MEDS: DEXTROSE (50%) 50ML SYRG IV PRN ×2 (01:18→03:11)
[2017-07-13] MEDS: PHENYLEPHRINE INJ 80 MG in SODIUM CHL 0.9% 250 ML IV SCH ×2 (03:15→10:47)
[2017-07-13 03:20] LABS: Mean Corpuscular Hemoglobin 32.2 pg (28.0-32.0); Mean Corpuscular Hgb Conc. 32.1 g/dL (32.0-36.0)
[2017-07-13 03:22] LABS: Mean Corpuscular Volume 100.1 fL (80.0-100.0); Platelet Count (auto) 106 10^3/uL (140-450); Red Cell Distribution Width 16.3 % (11.8-14.3)
[2017-07-13 03:27] LABS: INR 2.68 (0.9-1.15); Partial Thromboplastin Time 46.4 sec (22.64-33.71); Prothrombin Time 29.5 sec (9.37-12.3)
[2017-07-13 03:34] LABS: Hemoglobin 5.1 g/dL (12.2-16.2); White Blood Cell 1.8 10^3/uL (4.4-10.8)
[2017-07-13 03:37] LABS: Eosinophils % (manual) 0 (0-7); Promyelocytes % 0; Reactive Lymphocytes 0
[2017-07-13 03:39] LABS: Albumin 1.7 g/dL (3.4-5.0); BUN/Creatinine Ratio 7.5; Calcium 7.3 mg/dL (8.5-10.1)
[2017-07-13 03:48] LABS: Bilirubin, Total 1.9 mg/dL (0.2-1.0)
[2017-07-13] MEDS ORDERED: ASPI81TA27 PO (04:41)
[2017-07-13] MEDS ORDERED: CAR125T PO (04:41)
[2017-07-13 05:05] LABS: Band Neutrophils % (manual) 11; Basophils % (manual) 1 (0.0-2.0); Blast Cells 1; Lymphocytes % (manual) 59 (10.0-50.0); Metamyelocytes % 5; Monocytes % (manual) 8 (0-12); Myelocytes % 2
[2017-07-13] MEDS: ACCU-CHEK COMFORT CURVE STRIP VI SCH ×3 (05:33→12:00)
[2017-07-13] MEDS: SODIUM CHLOR 0.9% PF (SALINE LOCK) 10ML VIAL/SYR IV SCH (05:33)
[2017-07-13] MEDS: InsuLIN REG 1unit/0.01ml Soln (100units/ml) SC SCH ×3 (05:33→12:00)
[2017-07-13] MEDS ORDERED: cefTRIAXone 1GM/10ml IVPUSH 10 ML IV SCH (09:00)
[2017-07-13] MEDS ORDERED: MORPHINE SULFATE 8mg/ml INJ SDV IV PRN (09:45)
[2017-07-13] MEDS ORDERED: LORazepam 2MG/ML-1ML VIAL IV ONE (10:00)
[2017-07-13] MEDS ORDERED: PANTOPRAZOLE 40 MG/10 ML VIAL IV SCH (10:00)
[2017-07-13] MEDS ORDERED: NIFEdipine ER 30 MG TAB PO SCH (10:00)
[2017-07-13] MEDS ORDERED: AZITHROMYCIN 500MG/ 250ML 250 ML IV SCH (10:00)
[2017-07-13] MEDS ORDERED: CLOPIDOGREL BISULFATE 75 MG TAB PO SCH (10:00)
[2017-07-13] MEDS ORDERED: PANTOPRAZOLE 40 MG TAB PO SCH (10:00)
[2017-07-13] MEDS ORDERED: MULTIPLE VITAMIN TAB PO SCH (10:00)
[2017-07-13] MEDS ORDERED: SODIUM BICARBONATE 8.4% INJ 50ML SYRINGE IV ONE (14:55)
[2017-07-13] MEDS ORDERED: CALCIUM CHLOR(10%) 100MG/ML 10ML SYRINGE IV ONE (14:55)
[2017-07-13] MEDS ORDERED: ATROPINE SULF 0.5 MG/5ML SYR IV ONE (14:55)
[2017-07-13] MEDS ORDERED: EPINEPHrine HCL 1 MG/10 ML SYRG IV ONE (14:55)
== END 2017-07-13 18:16 | disposition expired | DRG 314 ==
LOC: EDBD 10:48 → ER 10:48 → OVERFLOW 10:49 → ICU WEST 16:41
PROVIDERS: ADMIT Internal Medicine; ATTEND Internal Medicine
PROC: 5A1935Z Respiratory Ventilation, Less than 24 Consecutive Hours (ICD-10-PCS; principal; 2017-07-12)
PROC: 5A12012 Performance of Cardiac Output, Single, Manual (ICD-10-PCS; 2017-07-12)
PROC: 0BH17EZ Insertion of Endotracheal Airway into Trachea, Via Natural or Artificial Opening (ICD-10-PCS; 2017-07-12)
PROC: 30233N1 Transfusion of Nonautologous Red Blood Cells into Peripheral Vein, Percutaneous Approach (ICD-10-PCS; 2017-07-13)
PROC: 6A550Z3 Pheresis of Plasma, Single (ICD-10-PCS; 2017-07-13)
DX: T82.199A Other mechanical complication of unspecified cardiac device, initial encounter (principal); A41.9 Sepsis, unspecified organism; J69.0 Pneumonitis due to inhalation of food and vomit; I46.9 Cardiac arrest, cause unspecified; J96.01 Acute respiratory failure with hypoxia; I13.2 Hypertensive heart and chronic kidney disease with heart failure and with stage 5 chronic kidney disease, or end stage renal disease; N18.6 End stage renal disease; E44.0 Moderate protein-calorie malnutrition; Y83.9 Surgical procedure, unspecified as the cause of abnormal reaction of the patient, or of later complication, without mention of misadventure at the time of the procedure; E83.51 Hypocalcemia; E11.21 Type 2 diabetes mellitus with diabetic nephropathy; E87.5 Hyperkalemia; E11.22 Type 2 diabetes mellitus with diabetic chronic kidney disease; E83.41 Hypermagnesemia; D64.9 Anemia, unspecified; E78.5 Hyperlipidemia, unspecified; I25.10 Atherosclerotic heart disease of native coronary artery without angina pectoris; I50.9 Heart failure, unspecified; Z51.5 Encounter for palliative care; Z66 Do not resuscitate; Z82.49 Family history of ischemic heart disease and other diseases of the circulatory system; Z86.73 Personal history of transient ischemic attack (TIA), and cerebral infarction without residual deficits; Z90.710 Acquired absence of both cervix and uterus; I25.2 Old myocardial infarction; Z99.2 Dependence on renal dialysis; Z88.0 Allergy status to penicillin
CPT/HCPCS: 36415; 36430; 36600; 70450; 71045; 80048; 80053; 82805; 82962; 83036; 83605; 83735; 84132; 84484; 85007; 85025; 85027; 85610; 85730; 86850; 86900; 86901; 86920; 87040; 87070; 87205; 92950; 93306; 94002; 94003; 94640; 96365; 96375; C9113; J0171; J0330; J0461; J1265; J1442; J1815; J2250; J2704; J3490; J7060